=== PATIENT | female | born 1945 | race Caucasian/White ===

== ENCOUNTER 2022-01-25 15:48 | Inpatient (IN) | payer OTHER, BC ==
[2022-01-25] MEDS ORDERED: SODIUM CHLORIDE 0.9% 500 ML INFUS.BAG IV ONE (17:12)
[2022-01-25] MEDS ORDERED: PANTOPRAZOLE SODIUM 40 MG VIAL IVPUSH ONE (17:12)
[2022-01-25] MEDS ORDERED: PANTOPRAZOLE SODIUM 40 MG/100 ML BAG IVPB ONE (17:56)
[2022-01-25 18:52] LABS: BASO % 0.6 % (0-2.0); EOS % 0.8 % (0-4.5); HEMOGLOBIN 12.1 GM/dL (10.7-15.3); LYMPH % 8.2 % (8-40); MCH 27.5 pg (25.7-33.7); MCHC 32.6 g/dl (32.0-36.0); MEAN CELL VOLUME 84.3 fl (80-96); MEAN PLT VOLUME 8.3 fl (7.5-11.1); MONO % 5.5 % (3.8-10.2); NEUT % 84.9 % (42.8-82.8); PLATELET COUNT 323 10^3/uL (134-434); RBC 4.39 M/mm3 (3.60-5.2); WHITE BLOOD COUNT 18.8 K/mm3 (4.0-10.0)
[2022-01-25 18:55] LABS: EPI CELLS 33 /uL (0-25.1); HYALINE CASTS 12 /uL (0-3.1); URINE APPEARANCE CLOUDY; URINE BACTERIA 57 /uL (0-1359); URINE BILIRUBIN NEGATIVE (NEGATIVE); URINE COLOR YELLOW; URINE GLUCOSE (UA) NEGATIVE (NEGATIVE); URINE KETONE TRACE (NEGATIVE); URINE LEUK ESTERASE 2+ (NEGATIVE); URINE NITRITE NEGATIVE (NEGATIVE); URINE PROTEIN TRACE (NEGATIVE); URINE RBC 21 /uL (0-23.9); URINE UROBILINOGEN 0.2 mg/dL (0.2-1.0); URINE WBC 250 /uL (0-25.8)
[2022-01-25 20:01] LABS: CALCIUM 9.3 mg/dL (8.5-10.1)
[2022-01-25 20:02] LABS: ALBUMIN 3.6 g/dl (3.4-5.0)
[2022-01-25 20:04] LABS: CREATININE 1.1 mg/dL (0.55-1.3)
[2022-01-25 20:06] LABS: BILIRUBIN,TOTAL 0.5 mg/dL (0.2-1); TOT PROT 7.3 g/dl (6.4-8.2)
[2022-01-25 20:11] LABS: BLOOD UREA NITROGEN 16.4 mg/dL (7-18)
[2022-01-25] MEDS ORDERED: CEFTRIAXONE 1,000 MG in DEXTROSE 5%-WATER - 50 ML IVPB ONE (22:39)
[2022-01-25] MEDS ORDERED: CEFTRIAXONE 1 GM/50 ML BAG ONE (22:48)
[2022-01-26] MEDS: LACTATED RINGERS SOLUTION 1,000 ML/1,000 ML INFUS.BAG IV SCH (01:52)
[2022-01-26 02:48] VITALS: BMI 24.3
[2022-01-26 08:56] LABS: BASO % 0.6 % (0-2.0); EOS % 1.9 % (0-4.5); HEMATOCRIT 30.8 % (32.4-45.2); HEMOGLOBIN 10.2 GM/dL (10.7-15.3); LYMPH % 12.9 % (8-40); MCH 27.8 pg (25.7-33.7); MCHC 33.2 g/dl (32.0-36.0); MEAN CELL VOLUME 83.6 fl (80-96); MEAN PLT VOLUME 8.8 fl (7.5-11.1); MONO % 7.9 % (3.8-10.2); NEUT % 76.7 % (42.8-82.8); PLATELET COUNT 257 10^3/uL (134-434); RBC 3.68 M/mm3 (3.60-5.2); RDW 14.6 % (11.6-15.6); WHITE BLOOD COUNT 10.7 K/mm3 (4.0-10.0)
[2022-01-26 09:10] LABS: CALCIUM 8.2 mg/dL (8.5-10.1)
[2022-01-26 09:11] LABS: BLOOD UREA NITROGEN 10.1 mg/dL (7-18)
[2022-01-26 09:14] LABS: CREATININE 0.9 mg/dL (0.55-1.3)
[2022-01-26] MEDS: amLODIPine BESYLATE 2.5 MG TABLET (FP) PO SCH (10:08)
[2022-01-26] MEDS: ENOXAPARIN NA (PORCINE) 40 MG/0.4 ML DISP.SYRIN SQ SCH (10:09)
[2022-01-26] MEDS ORDERED: VANCOMYCIN 250 MG/5 ML ORAL SOLUTION PO SCH (12:00)
[2022-01-26 14:09] LABS: MAGNESIUM 1.9 mg/dL (1.8-2.4)
[2022-01-26] MEDS: POLYETHYLENE GLYCOL (HEALTHYLAX) 3350 17 GM PACKET PO SCH (21:48)
[2022-01-27] MEDS: POLYETHYLENE GLYCOL (HEALTHYLAX) 3350 17 GM PACKET PO SCH ×3 (05:30→22:12)
[2022-01-27] MEDS: LACTATED RINGERS SOLUTION 1,000 ML/1,000 ML INFUS.BAG IV SCH ×2 (05:32→05:33)
[2022-01-27] MEDS: ENOXAPARIN NA (PORCINE) 40 MG/0.4 ML DISP.SYRIN SQ SCH (10:06)
[2022-01-27] MEDS: amLODIPine BESYLATE 2.5 MG TABLET (FP) PO SCH (10:10)
[2022-01-27 10:11] LABS: BASO % 0.8 % (0-2.0); EOS % 3.6 % (0-4.5); HEMATOCRIT 33.5 % (32.4-45.2); HEMOGLOBIN 11.3 GM/dL (10.7-15.3); LYMPH % 20.9 % (8-40); MCH 27.9 pg (25.7-33.7); MCHC 33.6 g/dl (32.0-36.0); MEAN PLT VOLUME 8.8 fl (7.5-11.1); MONO % 8.2 % (3.8-10.2); NEUT % 66.5 % (42.8-82.8); PLATELET COUNT 306 10^3/uL (134-434); RBC 4.04 M/mm3 (3.60-5.2); RDW 14.7 % (11.6-15.6); WHITE BLOOD COUNT 5.7 K/mm3 (4.0-10.0)
[2022-01-27 10:31] LABS: CALCIUM 9.2 mg/dL (8.5-10.1)
[2022-01-27 10:32] LABS: BLOOD UREA NITROGEN 6.9 mg/dL (7-18)
[2022-01-27 10:34] LABS: CREATININE 0.9 mg/dL (0.55-1.3)
[2022-01-27 10:36] LABS: BILIRUBIN,TOTAL 0.3 mg/dL (0.2-1); TOT PROT 6.6 g/dl (6.4-8.2)
[2022-01-28] MEDS: POLYETHYLENE GLYCOL (HEALTHYLAX) 3350 17 GM PACKET PO SCH ×3 (05:34→22:31)
[2022-01-28] MEDS ORDERED: PEG 3350/NA SULF BICARB CL/KCL 4000 ML SOLN.RECON PO ONE (09:00)
[2022-01-28 09:49] LABS: BASO % 0.9 % (0-2.0); EOS % 2.7 % (0-4.5); HEMATOCRIT 35.4 % (32.4-45.2); HEMOGLOBIN 12.1 GM/dL (10.7-15.3); LYMPH % 17.1 % (8-40); MCH 28.3 pg (25.7-33.7); MCHC 34.2 g/dl (32.0-36.0); MEAN CELL VOLUME 82.6 fl (80-96); MEAN PLT VOLUME 8.4 fl (7.5-11.1); MONO % 6.9 % (3.8-10.2); NEUT % 72.4 % (42.8-82.8); PLATELET COUNT 312 10^3/uL (134-434); RBC 4.28 M/mm3 (3.60-5.2); RDW 14.8 % (11.6-15.6); WHITE BLOOD COUNT 6.6 K/mm3 (4.0-10.0)
[2022-01-28] MEDS: ENOXAPARIN NA (PORCINE) 40 MG/0.4 ML DISP.SYRIN SQ SCH (09:49)
[2022-01-28] MEDS: amLODIPine BESYLATE 2.5 MG TABLET (FP) PO SCH ×2 (09:50→09:53)
[2022-01-28 09:53] LABS: INR 1.38 (0.83-1.09); PROTHROMBIN TIME (PATIENT) 15.9 SEC (9.7-13.0)
[2022-01-28 10:05] LABS: BLOOD UREA NITROGEN 6.5 mg/dL (7-18); CALCIUM 9.2 mg/dL (8.5-10.1)
[2022-01-28 10:06] LABS: MAGNESIUM 1.8 mg/dL (1.8-2.4)
[2022-01-28 10:07] LABS: ALBUMIN 3.3 g/dl (3.4-5.0)
[2022-01-28 10:13] LABS: BILIRUBIN,TOTAL 1.2 mg/dL (0.2-1); TOT PROT 6.9 g/dl (6.4-8.2)
[2022-01-28] MEDS ORDERED: BISACODYL 5 MG TABLET.DR (FP) PO ONE (18:00)
[2022-01-29] MEDS: POLYETHYLENE GLYCOL (HEALTHYLAX) 3350 17 GM PACKET PO SCH ×3 (06:03→22:18)
[2022-01-29 09:01] LABS: BASO % 1.2 % (0-2.0); EOS % 2.5 % (0-4.5); HEMATOCRIT 36.2 % (32.4-45.2); LYMPH % 23.4 % (8-40); MCH 27.4 pg (25.7-33.7); MCHC 33.2 g/dl (32.0-36.0); MEAN CELL VOLUME 82.5 fl (80-96); MEAN PLT VOLUME 8.5 fl (7.5-11.1); MONO % 10.4 % (3.8-10.2); NEUT % 62.5 % (42.8-82.8); PLATELET COUNT 338 10^3/uL (134-434); RBC 4.38 M/mm3 (3.60-5.2); RDW 14.8 % (11.6-15.6); WHITE BLOOD COUNT 5.7 K/mm3 (4.0-10.0)
[2022-01-29 09:26] LABS: CALCIUM 9.3 mg/dL (8.5-10.1)
[2022-01-29 09:27] LABS: ALBUMIN 3.1 g/dl (3.4-5.0); BLOOD UREA NITROGEN 6.1 mg/dL (7-18); MAGNESIUM 1.8 mg/dL (1.8-2.4)
[2022-01-29 09:30] LABS: CREATININE 0.9 mg/dL (0.55-1.3)
[2022-01-29 09:31] LABS: BILIRUBIN,TOTAL 0.3 mg/dL (0.2-1); TOT PROT 6.5 g/dl (6.4-8.2)
[2022-01-29] MEDS: amLODIPine BESYLATE 2.5 MG TABLET (FP) PO SCH (12:30)
[2022-01-29] MEDS ORDERED: ACETAMINOPHEN 325 MG TABLET (FP) PO PRN (17:43)
[2022-01-30] MEDS: POLYETHYLENE GLYCOL (HEALTHYLAX) 3350 17 GM PACKET PO SCH (05:29)
[2022-01-30 08:41] VITALS: BP 135/89; PULSE 104; TEMP 98.6
[2022-01-30 08:53] LABS: BASO % 1.2 % (0-2.0); EOS % 2.1 % (0-4.5); HEMATOCRIT 37.1 % (32.4-45.2); HEMOGLOBIN 12.1 GM/dL (10.7-15.3); LYMPH % 23.9 % (8-40); MCH 27.2 pg (25.7-33.7); MCHC 32.7 g/dl (32.0-36.0); MEAN CELL VOLUME 83.2 fl (80-96); MEAN PLT VOLUME 9.2 fl (7.5-11.1); MONO % 11.6 % (3.8-10.2); NEUT % 61.2 % (42.8-82.8); PLATELET COUNT 327 10^3/uL (134-434); RBC 4.46 M/mm3 (3.60-5.2); RDW 14.9 % (11.6-15.6); WHITE BLOOD COUNT 6.1 K/mm3 (4.0-10.0)
[2022-01-30 09:18] LABS: ALBUMIN 3.3 g/dl (3.4-5.0); CALCIUM 9.2 mg/dL (8.5-10.1); MAGNESIUM 1.9 mg/dL (1.8-2.4)
[2022-01-30 09:19] LABS: BLOOD UREA NITROGEN 11.7 mg/dL (7-18)
[2022-01-30] MEDS: amLODIPine BESYLATE 2.5 MG TABLET (FP) PO SCH (09:21)
[2022-01-30 09:22] LABS: BILIRUBIN,TOTAL 0.4 mg/dL (0.2-1)
[2022-01-30 09:23] LABS: TOT PROT 6.9 g/dl (6.4-8.2)
== END 2022-01-30 13:00 | disposition home or self-care (01) | DRG 392 ==
LOC: JER 15:48 → JERBED 22:37 → J7W 01-26 01:31
PROVIDERS: ADMIT Internal Medicine; ATTEND Nurse Practitioner Family
PROC: 0DJD8ZZ Inspection of Lower Intestinal Tract, Via Natural or Artificial Opening Endoscopic (ICD-10-PCS; 2022-01-29)
PROC: 0DBN8ZX Excision of Sigmoid Colon, Via Natural or Artificial Opening Endoscopic, Diagnostic (ICD-10-PCS; principal; 2022-01-29 09:45)
DX: K57.32 Diverticulitis of large intestine without perforation or abscess without bleeding (principal); K86.2 Cyst of pancreas; K44.9 Diaphragmatic hernia without obstruction or gangrene; D72.829 Elevated white blood cell count, unspecified; Z88.0 Allergy status to penicillin; R19.4 Change in bowel habit; R93.5 Abnormal findings on diagnostic imaging of other abdominal regions, including retroperitoneum; K52.9 Noninfective gastroenteritis and colitis, unspecified; K64.8 Other hemorrhoids
CPT/HCPCS: 0241U-QW; 36415; 74177-TC; 74182-TC; 80048; 80053; 81003; 82150; 83516; 83690; 83735; 85025; 85610; 86140; 86255; 86301; 86671; 86705; 86708; 86803; 87045; 87046; 87086; 87205; 87324; 87340; 87449; 87517; 88305-TC; 93005; 93010; 99285-25; Q9967

== ENCOUNTER 2022-06-05 04:32 | Day surgery (SDC) | payer OTHER, BC ==
[2022-06-04 15:59] VITALS: BMI 22.8
[2022-06-05 10:19] VITALS: TEMP 98
[2022-06-05 11:09] VITALS: BP 105/46; PULSE 80; RESP 13
== END 2022-06-05 11:25 | disposition home or self-care (01) ==
LOC: JASU-ENDO 04:32
PROVIDERS: ATTEND Internal Medicine Gastroenterology
PROC: 0DJD8ZZ Inspection of Lower Intestinal Tract, Via Natural or Artificial Opening Endoscopic (ICD-10-PCS; principal; 2022-06-05 10:00)
DX: Z12.11 Encounter for screening for malignant neoplasm of colon (principal); K63.89 Other specified diseases of intestine; K57.30 Diverticulosis of large intestine without perforation or abscess without bleeding; K64.8 Other hemorrhoids